=== PATIENT | female | born 1990 | race Caucasian/White ===

== ENCOUNTER 2019-04-12 16:15 | Inpatient (IN) | payer OTHER, SELFPAY ==
[2019-04-12 16:48] VITALS: BMI 32.4
[2019-04-12] MEDS: miSOPROStol 25 MCG TABLET PO ×2 (17:20→21:36)
[2019-04-12 17:35] LABS: Absolute Lymphocyte Count 1.81 X10^3/uL (0.83-4.51); Absolute Neutrophil Count 6.3 X10^3/uL (2.0-7.7); Basophil# 0.04 X10^3/uL; Basophil% 0.4 % (0-1); Eosinophil# 0.09 X10^3/uL; Hematocrit 33.6 % (37-47); Hemoglobin 10.9 g/dL (12.0-15.0); Lymphocyte # 1.81 X10^3/ul (4.0); Lymphocyte % 20.1 % (19-41); Mean Corp Hgb Conc 32.4 g/dL (32-36); Mean Corpuscular Volume 80.2 fL (81-99); Mean Platelet Vol. 11.1 fl (6.2-12.0); Monocyte# 0.74 X10^3/uL; Monocyte% 8.2 % (0-10); NRBC Flagged by Analyzer 0 % (0-5); Neutrophil # 6.28 X10^3/uL (2.7-7.7); Neutrophil % 69.9 % (47-70); Platelet Count 233 K/mm3 (150-450); RBC Distribution Width CV 13.6 % (11.6-14.6); RBC Distribution Width SD 39.3 fl (35.1-43.9); Red Blood Count 4.19 M/mm3 (4.2-5.4)
[2019-04-12 17:36] LABS: International Normalized Ratio 0.9; Prothrombin Time (Protime)PT. 12.1 SECONDS (11.7-14.9)
[2019-04-12 17:37] LABS: Partial Thromboplast Time 25.5 Seconds (24.1-36.2)
[2019-04-12 17:43] LABS: AST(SGOT) 23 U/L (15-37); Alanine Aminotransfer ALT/SGPT 28 U/L (13-56); Creatinine, Serum 1.03 mg/dL (0.55-1.02); EST Glomerular Filtration Rate 69 mL/min (>60); Est Glom Filt Rate - Afr Amer 83 mL/min (>60); Estimated Creatinine Clearance 74.48 ml/min; Uric Acid 4.4 mg/dL (2.6-6.0)
--- NOTE | 2019-04-12 19:38 | PCM.HP.OB ---
History Date of Admission: 04/12/19 Final KIRT: 04/16/19 Final KIRT Source: US <20 weeks Gestational age: 39 Weeks and 3 Days History of this : This is a 28 year-old, @ 39 3/7 weeks presents c/o increased blood pressure. Patient was seen in the office in yesterday and her blood pressure was mildly elevated. She was sent for preeclampsia labs. She was seen back today. She had a mild headache yesterday but denies headache today. She is been kind of tired. She denies visual changes or epigastric pain. She is had good movement. No vaginal bleeding or leaking of fluid. No regular contractions. Since he has been uncomplicated to date. Cording to her past medical history and her office chart, she has a history of genital HSV. Allergies No Known Allergies Allergy (Verified 04/12/19 17:32) Home Medications: Home Medications Acyclovir 04/12/19 Pnv No.95/Ferrous Fum/Folic AC [ Caplet] 1 ea PO 04/12/19 Smoking Status: Never smoker Alcohol: None Number of Fetus(es): 1 NST - FHR Rate Baby A Baseline: Normal Variability:: Moderate Accelerations:: 15 x 15 Decelerations:: None NST Reactive:: Yes, Appropriate for gestational age FHR Category:: Category I Uterine Activity:: Irregular contractions History Past Pregnancies: Past Pregnancies Delivery Date Name GA/ Weeks Outcome Route Wt Sex Labor Length Anesthesia Delivery Location Provider FOB Expected Delivery Method: Spontaneous Vaginal Review of Systems Constitutional: Denies: Chills, Fever Eyes: Denies: Blurred vision Cardiovascular: Denies: Chest Pain Respiratory: Denies: Cough, Shortness of Breath Skin: Denies: Rash Neurological: Denies: Balance problems Hematologic/ Lymphatic: Reports: Anemia Physical Exam General: Alert, Cooperative, No apparent distress Cardiovascular: Regular rate Lungs: Normal air movement Abdomen: Soft, Non Tender, Non-Distended, Gravid, Appropriate for Gestational Age Extremities:: Other - 2+ edema Neurological: Cranial nerves II-XII grossly intact, Deep Tendon Reflexes 2+/4 and Symmetrical. Negative for: Clonus DIVISION SUPERINTENDENT: Normal external genitalia Estimated gestational size: Appropriate for gestational size Presentation: Cephalic Cervix Dilation (cm): 0 - TM consistency, midposition Station: -2 Effacement (%): 60 Assessment/Plan This is a 28 year-old, 1 para 0 at 39-3/7 weeks gestation with gestational hypertension. No evidence of preeclampsia. Labs are normal. heart tones are category 1. Risk benefits and alternatives to induction's were discussed with the patient, her questions were answered to her satisfaction and consent was signed. She will undergo Cytotec, Kramer and likely artificial rupture membranes for induction. She may have epidural, nitrous oxide or Nubain as needed for pain control. Will monitor blood pressures. Procedure note: 28 [place] Kramer catheter was placed over the stylette into the internal cervical loss without difficulty. Balloon was inflated to 30 cc and placement over the internal loss was confirmed. Patient and fetus tolerated the procedure well. We will proceed with a second dose of Cytotec for induction tonight. Then will likely international exchange coordinator to Pitocin. For patient have a light diet now, then clears after this.
[2019-04-12 19:57] LABS: Protein, Urine (Random) 40.4 mg/dL (<11.9); Protein:Creat Ratio 293 mg/g CRE (0-200)
[2019-04-13] MEDS: Oxytocin 30 units/NS 500 ml 30 UNITS/500 ML IV.SOLN IV (01:48)
[2019-04-13] MEDS: 0.9% Saline Lock 10 ML Syringe IV (01:48)
[2019-04-13] MEDS: Lactated Ringers 1,000 ML 50 ML IV (01:48)
[2019-04-13] MEDS: Acetaminophen 325 MG Tablet PO (04:05)
[2019-04-13] MEDS: Lactated Ringers 500 ML 999 ML IV (07:01)
[2019-04-13] MEDS: fentaNYL-bupivacaine (epidural) 100 ML BAG EPIDURAL ×2 (08:00→12:56)
--- NOTE | 2019-04-13 08:39 | PCM.PN.BLA ---
Progress Note Seen at bedside resting comfortably with epidural in place. Vaginal exam performed she was 4-5 cm / 90%/-3 station with bulging membranes. Pressure was placed on the butt and during a contraction membranes were ruptured- copious amount of clear fluid. Pitocin at 6mu. Continue to labor, anticipate .
[2019-04-13] MEDS: Ondansetron 4 MG/2 ML Vial IV (11:36)
[2019-04-13] MEDS: Lactated Ringers 1,000 ML 200 ML IV (12:00)
[2019-04-13] MEDS: Oxytocin 30 units/NS 500 ml 30 UNITS/500 ML IV.SOLN 334 UNITS IV (18:12)
--- NOTE | 2019-04-13 18:29 | PCM.OPRPT ---
Vaginal Delivery Maternal Presentation: Medically Indicated Induction Method of Induction: Pitocin, Kramer Bulb, Cytotec Medical Reason for Induction: Gestational Hypertension Amniotic Membrane Rupture Type: Artificial Amniotic Fluid Description: Clear Final KIRT: 04/16/19 Gestational age: 39 Weeks and 4 Days Date of Procedure: 04/13/19 Pre-Operative Diagnosis: Gestational HTN, Term gestation Post-Operative Diagnosis: same Surgery/ Procedure Performed: Spontaneous Vaginal Delivery Type of Anesthesia: Epidural Description of Procedure: of live male infant, NUCHAL X 1- loose. head on perineum - tight vaginal band- patient was given option for small episiotomy to expedite delivery- and accepted. RML made- head delivered without difficulty followed by gentle downward traction- delivery of anterior shoulder and rest of infant body without difficulty. placed on mother- delayed cord clamping performed. Presentation: Vertex Placental Delivery Description: Spontaneous Placenta Disposition: [facility] Cord Vessel Description: 3 Vessels Cord Entanglement: None, Around neck x 1, loose Drain: Kramer to straight drain Estimated Blood Loss: 350 A gender: Male (1 minute): 8 (5 minute): 9 Episiotomy Description: Right Mediolateral - repaired with 2-0 vicryl and 3-0 rapide, 2nd degree Laceration: Vaginal Extension/lac - repaired with 2-0 vicryl, 2nd degree Medications given after delivery: IV Pitocin Complications: None
[2019-04-13] MEDS: Ibuprofen 600 MG Tablet PO (20:33)
--- NOTE | 2019-04-13 22:24 | NURSING ---
At 2210 patient up to bathroom with assist from this RN and Brendon RN, performed arabella care and voided but missed hat. Pt tolerated activity well.
[2019-04-14 00:29] VITALS: BP 125/63; PULSE 109; RESP 18; TEMP 36.4
[2019-04-14] MEDS: Dibucaine 30 GM Tube 1 APPLIC TOPICAL (00:37)
[2019-04-14 04:58] VITALS: BP 109/58; PULSE 96; RESP 18; TEMP 36.4
--- NOTE | 2019-04-14 07:49 | PCM.PN.OB ---
Subjective: Patient seen at bedside, doing well. Patient reports some perineal discomfort. Voiding without difficulty. Mild lochia. Breast-feeding - Physical Exam Vitals/I&O's: Vital Signs Temp Pulse Resp BP 97.5 F L 96 18 109/58 L 04/14/19 04:58 04/14/19 04:58 04/14/19 04:58 04/14/19 04:58 Oxygen Delivery Method Room Air Weight: 88.451 kg Body Mass Index (BMI) 32.4 Intake and Output for Last 24 Hours 04/12/19 04/13/19 04/14/19 23:59 23:59 23:59 Intake Total 3136.59 / 3136.59 Output Total 300 / 300 Balance 2836.59 / 2836.59 General: Alert, Oriented x3 Abdomen: Soft, Non Tender, - - fundus firm Extremities: No Calf Tenderness Current Medications Acetaminophen (Tylenol) 1,000 mg PO Q8H PRN PRN PRN Reason: Pain Score 1-3/10 Bisacodyl (Dulcolax) 10 mg RECTAL UD PRN PRN Reason: If no BM Dibucaine (Dibucaine) 1 applic TOPICAL TID PRN PRN; Protocol PRN Reason: Discomfort Last Admin: 04/14/19 00:37 Dose: 1 tube Documented by: Hydrocortisone (Hytone) 1 applic TOPICAL TID PRN PRN; Protocol PRN Reason: Discomfort Ibuprofen (Motrin) 600 mg PO Q6H PRN PRN PRN Reason: Pain Score 1-3/10 Last Admin: 04/13/19 20:33 Dose: 600 mg Documented by: Methylergonovine Maleate (Methergine) 0.2 mg IM X1 PRN PRN Reason: Excess bleeding/uterine atony Oxycodone HCl (Oxyir) 5 - 10 mg PO Q4H PRN PRN PRN Reason: Pain Score 4-10/10 Senna/Docusate Sodium (Senokot-S, Zarina-Colace) 1 - 2 tablet PO DAILY PRN PRN PRN Reason: Constipation Simethicone (Mylicon) 80 mg PO PCHS PRN PRN Reason: Indigestion/Stomach pain Sodium Chloride () 5 - 15 ml IV UD PRN PRN Reason: SALINE FLUSH Medical Necessity - Tobacco Use Smoking Status: Never smoker Assessment/Plan PPD#1, doing well routine care pain mgmt
[2019-04-14 08:28] VITALS: BP 119/67; PULSE 96; RESP 16; TEMP 36.8
[2019-04-14] MEDS: Ibuprofen 600 MG Tablet PO ×2 (09:13→19:02)
[2019-04-14 12:00] VITALS: BP 110/60; PULSE 86; RESP 16; TEMP 36.8
[2019-04-14 16:00] VITALS: BP 111/68; PULSE 100; RESP 16; TEMP 36.9
[2019-04-14 20:02] VITALS: BP 120/84; PULSE 97; RESP 18; TEMP 37.1; O2SAT 97
[2019-04-15 03:45] VITALS: BP 131/65; PULSE 89; RESP 14; TEMP 37.2
[2019-04-15] MEDS: Ibuprofen 600 MG Tablet PO (05:15)
--- NOTE | 2019-04-15 09:29 | PCM.PN.OB ---
Subjective: Doing well per patient and nursing staff. Ambulating and taking PO without difficulty. Voiding and passing flatus. without difficulty. Planning D/C home today. - Physical Exam Vitals/I&O's: Vital Signs Temp Pulse Resp BP Pulse Ox 98.9 F 89 14 131/65 H 97 04/15/19 03:45 04/15/19 03:45 04/15/19 03:45 04/15/19 03:45 04/14/19 20:02 Oxygen Delivery Method Room Air Weight: 195 lb Body Mass Index (BMI) 32.4 Intake and Output for Last 24 Hours 04/13/19 04/14/19 04/15/19 23:59 23:59 23:59 Intake Total 3136.59 / 3136.59 Output Total 300 / 300 Balance 2836.59 / 2836.59 General: Alert, Oriented x3, Cooperative HEENT: Atraumatic, Normocephalic Neck: Trachea Midline Lungs: Clear to auscultation, Normal air movement, No rhonchi, No wheeze Cardiovascular: Regular rate, Regular Rhythm, No murmurs Abdomen: Bowel Sounds Present, Soft, - - fundus firm 2 below Extremities: No edema Neurological: Deep Tendon Reflexes 2+/4 and Symmetrical Psych/Mental Status: Normal Affect, Appropriate Current Medications Acetaminophen (Tylenol) 1,000 mg PO Q8H PRN PRN PRN Reason: Pain Score 1-3/10 Bisacodyl (Dulcolax) 10 mg RECTAL UD PRN PRN Reason: If no BM Dibucaine (Dibucaine) 1 applic TOPICAL TID PRN PRN; Protocol PRN Reason: Discomfort Last Admin: 04/14/19 00:37 Dose: 1 tube Documented by: Hydrocortisone (Hytone) 1 applic TOPICAL TID PRN PRN; Protocol PRN Reason: Discomfort Ibuprofen (Motrin) 600 mg PO Q6H PRN PRN PRN Reason: Pain Score 1-3/10 Last Admin: 04/15/19 05:15 Dose: 600 mg Documented by: Methylergonovine Maleate (Methergine) 0.2 mg IM X1 PRN PRN Reason: Excess bleeding/uterine atony Oxycodone HCl (Oxyir) 5 - 10 mg PO Q4H PRN PRN PRN Reason: Pain Score 4-10/10 Senna/Docusate Sodium (Senokot-S, Zarina-Colace) 1 - 2 tablet PO DAILY PRN PRN PRN Reason: Constipation Simethicone (Mylicon) 80 mg PO PCHS PRN PRN Reason: Indigestion/Stomach pain Sodium Chloride () 5 - 15 ml IV UD PRN PRN Reason: SALINE FLUSH Medical Necessity - Tobacco Use Smoking Status: Never smoker Assessment/Plan A:PPD #2 P: 1) Routine care 2) Discharge and instructions reviewed 3) Follow up for BP check next week. 2 week and 6 week visit.
--- NOTE | 2019-04-15 09:31 | DCINST_ITS ---
Discharge Diet: No Restrictions Discharge Activity: Return to Normal Activity, May not drive while taking narcotic pain medications., May Shower May resume sexual activity in: 4-6 weeks Weight Bearing Status: Full weight bearing Additional Activity Instructions:: Nothing in the vagina for 4-6 weeks. You may return to work/school in 6 weeks. Call your doctor if your incision/area has: Continuous Slow Oozing, Sudden Increased Bleeding, Increased Pain/ Swelling, Increased Redness, Foul Smelling Discharge Call your doctor if you observe: Fever of 101 or Higher, Numbness or Tingling, Inability to urinate, Inability to have a bowel movement, Using more than one pad per hour, Shortness of breath, Chest pain, Increased palpitations (irregular heartbeat), Calf discomfort, Uncontrolled pain Additional Instructions: If you experience any of the following, contact your healthcare provider. * Bleeding that soaks a pad every hour for 2 hours * Fever 100.4 or higher * Unrelieved incision or abdominal pain * Swelling, redness, discharge or bleeding from your incision or episiotomy site * Your incision begins to separate * Problems urinating (including inability to urinate or burning while urinating). * Visual changes * Severe headache * Flu-like symptoms * Pain or redness in one of both of your breasts * Pain, warmth, tenderness or swelling in your legs, especially the calf area * Frequent nausea and vomiting * Symptoms of depression or anxiety If you experience any of the following, call 911 or go to the nearest Emergency Room. * Chest pain * Problems breathing * Seizure activity * Partial or complete paralysis of a body part, slurred speech, weakness or drooping of the face, or a sudden inability to walk or hold your balance Allergies/Adverse Reactions: Allergies No Known Allergies Allergy (Verified 04/12/19 17:32) Medications to take at Discharge Acyclovir 04/12/19 Pnv No.95/Ferrous Fum/Folic AC [ Caplet] 1 ea PO 04/12/19 Ibuprofen [Motrin] 600 mg PO Q6H PRN PRN #30 tab 04/15/19 The following prescriptions were given: Ibuprofen [Motrin] 600 mg PO Q6H PRN PRN #30 tab PRN Reason: Pain Score 1-3/10 Transmission Status: Pending to [facility] Please Follow Up With: Teresita Perdomo CNM When: Call to make an appointment with your doctor on 04/18/19 for BP check, 2 week and 6 weeks. If you had elevated Blood Pressure or 4th degree laceration you will need to be seen in 2 weeks. Primary Care Physician: Savage Li MD [Primary Care Provider] - Test Results: Test results from this visit will be discussed in further detail at your follow- up appointment, if applicable.
[2019-04-15 10:00] VITALS: BP 137/78; PULSE 95; RESP 14; TEMP 36.3
== END 2019-04-15 11:50 | disposition home or self-care (01) | DRG 807 ==
PROVIDERS: Obstetrics & Gynecology; Admitting Provider Obstetrics & Gynecology; Family Provider Pediatrics; PCP Pediatrics; Visit Provider Obstetrics & Gynecology
DX: O13.4 Gestational [pregnancy-induced] hypertension without significant proteinuria, complicating childbirth (principal); Z37.0 Single live birth; O69.81X0 Labor and delivery complicated by cord around neck, without compression, not applicable or unspecified; O70.1 Second degree perineal laceration during delivery; O99.89 Other specified diseases and conditions complicating pregnancy, childbirth and the puerperium; N89.5 Stricture and atresia of vagina; Z3A.39 39 weeks gestation of pregnancy; Z87.42 Personal history of other diseases of the female genital tract
CPT/HCPCS: 59025; 59050; 82565; 82570; 84156; 84450; 84460; 84550; 85025; 85610; 85730; 86850; 86900; 86901; 99218; J7120; A4216; G0378; J2405; J3490

== ENCOUNTER 2021-09-09 07:00 | Inpatient (IN) | payer OTHER, SELFPAY ==
[2021-09-09] VITALS (65 sets, daily range): BP systolic 117–154; BP diastolic 57–91; PULSE 90–146; TEMP 36.4–37.1; O2SAT 94–100; BMI 33.5
[2021-09-09] MEDS: Lactated Ringers 1,000 ML 50 ML IV (07:55)
[2021-09-09 08:09] LABS: Absolute Lymphocyte Count 1.89 X10^3/uL (0.83-4.51); Absolute Neutrophil Count 5.9 X10^3/uL (2.0-7.7); Basophil# 0.05 X10^3/uL; Basophil% 0.6 % (0-1); Eosinophil# 0.16 X10^3/uL; Eosinophils% 1.8 % (0-5); Hematocrit 36.3 % (37-47); Hemoglobin 11.1 g/dL (12.0-15.0); Lymphocyte # 1.89 X10^3/ul (0.83-4.51); Lymphocyte % 21.5 % (19-41); Mean Corp Hgb Conc 30.6 g/dL (32-36); Mean Corpuscular Volume 75.3 fL (81-99); Mean Platelet Vol. 10.8 fl (6.2-12.0); Monocyte# 0.72 X10^3/uL; Monocyte% 8.2 % (0-10); NRBC Flagged by Analyzer 0 % (0-5); Neutrophil # 5.91 X10^3/uL (2.7-7.7); Neutrophil % 67.3 % (47-70); Platelet Count 207 K/mm3 (150-450); RBC Distribution Width CV 15.8 % (11.6-14.6); RBC Distribution Width SD 42.2 fl (35.1-43.9); Red Blood Count 4.82 M/mm3 (4.2-5.4); White Blood Count 8.8 K/mm3 (4.4-11.0)
--- NOTE | 2021-09-09 08:18 | PCM.HP.OB ---
HPI - General General Date of Admission: 09/09/21 HPI Narrative GENEVA GARCÍA, is a 30 F at 40.4 weeks gestation who presents for elective induction of labor. has been uncomplicated. She has a history of HSV and has been taking Acyclovir PO starting at 36 weeks gestation. Maternal Data Information KIRT Calculator Estimated Delivery Date Method Current WG Current Estimate 09/05/21 Manual 40w 4d PFSH PFSH Medical History Genital herpes affecting Pre-eclampsia Home Medications acyclovir 400 mg PO BID 04/12/19 [History Last Taken 09/09/21 06:30 400 mg] Allergy/AdvReac Type Severity Reaction Status Date / Time No Known Allergies Allergy Verified 04/12/19 17:32 Social History Smoking Status: Never smoker History Elective abortions Hx Para 1 Spontaneous abortions Hx # Term Pregnancies Ectopic pregnancies Hx # Pregnancies Multiple births # of living children NST FHR Rate Baby A Baseline: 160 Variability:: Moderate Accelerations:: 15 x 15 Decelerations:: None NST Reactive:: Yes FHR Category:: Category I Uterine Activity:: occasional ROS Eyes Eyes: Denies blurry vision, change in vision or spots in vision ENT HEENT: Denies dizziness or headache(s) Cardiovascular Cardiovascular: Denies abdominal pain, chest pain or dyspnea Respiratory/Chest Respiratory/Chest: Denies cough, dyspnea, shortness of breath at rest or shortness of breath with exertion Gastrointestinal Gastrointestinal: Denies abdominal pain, diarrhea or vomiting Genitourinary Genitourinary: Denies change in urinary stream, difficulty urinating or dysuria Musculoskeletal Musculoskeletal: Reports none Integumentary Integumentary: Denies rash Neurologic Neurologic: Denies dizziness, headache(s), memory loss or weakness Psychiatric Psychiatric: Reports none Vital Signs Vital Signs Vital Signs: 09/09/21 08:07 09/09/21 08:08 Temperature 97.9 F Pulse Rate 113 H Blood Pressure 132/84 H BP Systolic 132 BP Diastolic 84 Weight Weight: 195 lb 8.8 oz Body Mass Index (BMI) 33.5 Physical Exam Const alert, oriented x3 and no apparent distress General Appearance: cooperative Orientation / Consciousness: awake Exam Limitations: no limitations HEENT normocephalic Head and Scalp: normal to inspection Eyes General Eye: normal appearance of both eyes Neck full ROM and no lymphadenopathy Lymph Lymphatic: no lymphadenopathy noted Chest inspection of chest normal Resp normal respiratory effort, normal air movement and clear to auscultation bilaterally Effort and Inspection: able to speak in complete sentences and symmetric chest movement Cardio regular rate and regular rhythm GI normal to inspection, nondistended, normoactive bowel sounds Manual OB Exam: dilated 2, effaced 60 and station -1 Back/Spine normal ROM Extremity full ROM and no calf tenderness Skin no rashes or lesions noted General Skin Exam: no breakdown Neuro oriented x3 and CN's II-XII intact bilaterally Psych mental status grossly normal and thought process normal Labs Labs Labs: Blood Type O POSITIVE Antibody Screen NEGATIVE Hct 36.3 % (37-47) L Hgb 11.1 g/dL (12.0-15.0) L Rhogam given: No Rubella - immune HB- neg HC- neg HIV- NR RPR- NR GBS negative Assessment & Plan (1) 40 weeks gestation of : (2) History of herpes genitalis: (3) Encounter for induction of labor: PLAN: Admit to labor and delivery Routine labs Start lV and run fluids per policy GBS negative No vaginal lesions noted with exam Kramer bulb placed without difficulty and balloon filled with 30 cc NS Start Pitocin at 2 mu/min and increase per policy Epidural when indicated Anticipate Dr. Todd notified and is collaborating physician
[2021-09-09] MEDS: 0.9% Normal Saline Single 100 ML IV.SOLN. INTRA-UTER (08:35)
[2021-09-09] MEDS: Oxytocin 30 units/NS 500 ml 30 UNITS/500 ML IV.SOLN IV (08:40)
--- NOTE | 2021-09-09 12:15 | PCM.PN.BLA ---
Progress Note Patient seen at bedside. Comfortable with epidural anesthesia. Physical Exam Const alert and no apparent distress General Appearance: cooperative and comfortable Exam Limitations: no limitations HEENT normocephalic Eyes General Eye: normal appearance of both eyes Neck full ROM General: normal visual inspection Chest Chest: symmetrical chest wall rise Resp normal respiratory effort and normal air movement Effort and Inspection: symmetric chest movement Auscultation: clear to auscultation bilaterally Cardio regular rate and regular rhythm GI normal to inspection, nondistended, normoactive bowel sounds Back/Spine normal ROM Extremity full ROM and no calf tenderness General Extremity: normal exam except as noted Skin no rashes or lesions noted Neuro CN's II-XII intact bilaterally Psych mental status grossly normal Assessment & Plan Assessment/Plan (1) 40 weeks gestation of : (2) Encounter for induction of labor: PLAN: Kramer bulb out spontaneously Ptiocin 10 mu/min CE- 4/80/-1 AROM for moderate amount of clear fluid IUPC placed without difficulty Anticipate Dr. Todd updated
[2021-09-09] MEDS: Lactated Ringers 500 ML 999 ML IV ×3 (12:18→19:57)
[2021-09-09] MEDS: Lactated Ringers 1,000 ML 200 ML IV (15:35)
[2021-09-09] MEDS: fentaNYL-bupivacaine (epidural) 100 ML BAG EPIDURAL ×2 (15:36→20:08)
[2021-09-09] MEDS: Oxytocin 30 units/NS 500 ml 30 UNITS/500 ML IV.SOLN 334 UNITS IV (20:56)
--- NOTE | 2021-09-09 21:16 | EX.PCM.OBRPT ---
Assessment & Plan (1) (spontaneous vaginal delivery): (2) Laceration, obstetrical, first degree: Maternal Data Information KIRT Calculator Estimated Delivery Date Method Current WG Current Estimate 09/05/21 Manual 40w 4d Vaginal Delivery Maternal Presentation Maternal Presentation: Elective Induction Maternal Presentation: Patient is a at 40.4 weeks gestation that presents for an elective induction of labor. Type of Induction: Pitocin, Kramer Bulb and Amniotomy Operative Information Date of Procedure: 09/09/21 Pre-Operative Diagnosis: Term gestation, Induction of labor Post-Operative Diagnosis: , live viable male Surgery / Procedure Performed: Spontaneous Vaginal Delivery Type of Anesthesia: Epidural Drain: Kramer to straight drain Estimated Blood Loss: 250 Time of Delivery: 20:52 Findings Description of Procedure: Cat. 2 strip with variables and early decelerations. CE completed and patient was 10/100/+1. With minimal maternal effort, delivery of head followed immediately by anterior shoulder, posterior shoulder and remainder of infant. Loose cord around entire body. Vigorous male placed on maternal abdomen and attended to by nursing staff. Pitocin IV started for active management of the third stage of labor. 3 vessel cord clamped and cut by myself after 2 minute delay. placed immediately skin to skin with patient. Placenta delivered spontaneously and intact. First degree vaginal laceration repaired in usual fashion with 3-0 Vicryl Rapide. Hemostasis obtained. Vaginal sweep completed by myself. Fundus firm 2 below U. EBL 250 cc. Apgars 8/9. Patient and infant bonding well at this time. Dr. Todd notified of delivery. Presentation: QASIM Amniotic Membrane Rupture Type: Artificial Time of Membrane Rupture: 1211 Amniotic Fluid Description: Clear Placental Delivery Description: Spontaneous Placenta Disposition: [facility] Cord Vessel Description: 3 Vessels Cord Entanglement: - (Loose cord around body x1) Nuchal Cord Compression: Without compression A Gender: Male (1 minute): 8 (5 minute): 9 Delayed Cord Clamping: Yes Post Vaginal Delivery Medications Given After Delivery: IV Pitocin Episiotomy Description: None Laceration: 1st degree Complication Complications: None
[2021-09-10] VITALS (7 sets, daily range): BP systolic 118–129; BP diastolic 66–85; PULSE 98–115; RESP 16–18; TEMP 26.3–36.9; O2SAT 94–98
--- NOTE | 2021-09-10 02:19 | NURSING ---
09/09 2300: Epidural cath removed, blue tip intact.
[2021-09-10] MEDS: Acetaminophen 500 MG Tablet 1000 MG PO ×2 (05:51→15:34)
--- NOTE | 2021-09-10 13:36 | PCM.PN.OB ---
Subjective Subjective Denies complaints Objective Data Objective Data Vital Signs: Vital Signs Temp Pulse Resp BP Pulse Ox 97.8 F 105 H 16 118/66 98 09/10/21 13:11 09/10/21 13:11 09/10/21 13:11 09/10/21 13:11 09/10/21 03:25 Oxygen Delivery Method Room Air Weight: 195 lb 8.8 oz Body Mass Index (BMI) 33.5 Intake & Output: Intake and Output for Last 24 Hours 09/08/21 09/09/21 09/10/21 23:59 23:59 23:59 Intake Total 3644.49 / 3644.49 Output Total 1600 / 1600 750 / 750 Balance 2044.49 / 2044.49 -750 / -750 Lab / Micro Data Result Diagrams: 09/09/21 07:55 Micro: Microbiology 09/09/21 08:47 Nasal Secretion SARS-CoV-2 Antigen (Rapid) - Final Physical Exam Const alert, oriented x3 and no apparent distress HEENT normocephalic GI soft to palpation, non-tender and non-distended GI Narrative: fundus firm, mid & below umbilicus Extremity normal to inspection and no calf tenderness Assessment & Plan (1) (spontaneous vaginal delivery): COMMENT: PPD#1 PLAN: Routine care
[2021-09-10] MEDS: Naproxen 500 MG Tablet PO (20:37)
[2021-09-11 02:00] VITALS: BP 113/65; PULSE 83; RESP 14; TEMP 36.6
[2021-09-11] MEDS: Acetaminophen 500 MG Tablet 1000 MG PO ×2 (04:13→10:30)
[2021-09-11 08:56] VITALS: BP 126/87; PULSE 79; RESP 16; TEMP 36.7
--- NOTE | 2021-09-11 08:57 | PCM.DC.SUM ---
Providers Date of Admission: 09/09/21 Primary Care Physician: Dr. Savage Li MD Reason For Visit: INDUCTION Diagnosis Discharge Diagnosis (1) (spontaneous vaginal delivery): Status: Acute Code(s): O80 - Encounter for full-term uncomplicated delivery Medications at Discharge Home Medications acetaminophen 1,000 mg PO Q6H PRN PRN #0 tab 09/11/21 naproxen 500 mg PO Q8H PRN PRN #0 tab 09/11/21 Weight / BMI Weight Weight: 195 lb 8.8 oz Body Mass Index (BMI) 33.5 ABG / Lab / Microbiology Data Result Diagrams: 09/09/21 07:55 Microbiology: Microbiology 09/09/21 08:47 Nasal Secretion SARS-CoV-2 Antigen (Rapid) - Final Meaningful Use Info Meaningful Use Diagnoses (Choose all that apply): None applicable Discharge Plan Admission Admit Date/Time: 09/09/21 07:00 Primary Reason for Your Visit: vaginal delivery Attending Provider: Prudence Vera Primary Care Provider: Savage Li Instructions Additional Instructions / Restrictions: follow up in 2 weeks and 6 weeks Discharge Orders/Prescriptions Prescriptions: New acetaminophen 500 mg Tablet 1,000 mg PO Q6H PRN PRN (Reason: Pain 1-10 Or Fever) Qty: 0 RF: 0 naproxen 500 mg Tablet 500 mg PO Q8H PRN PRN (Reason: Pain Score 1-3) Qty: 0 RF: 0 Discontinued acyclovir 400 MG tablet 400 mg PO BID RF: 0 Referrals / Follow Up: Savage Li MD [Primary Care Provider] - Disposition Disposition (needs filled in before D/C Order can be placed): Home, Self Care
== END 2021-09-11 12:45 | disposition home or self-care (01) | DRG 807 ==
PROVIDERS: Admitting Provider Advanced Practice Midwife; PCP Pediatrics; Referring Provider Advanced Practice Midwife; Visit Provider Advanced Practice Midwife
DX: O76 Abnormality in fetal heart rate and rhythm complicating labor and delivery (principal); Z37.0 Single live birth; O69.2XX0 Labor and delivery complicated by other cord entanglement, with compression, not applicable or unspecified; O70.0 First degree perineal laceration during delivery; Z3A.40 40 weeks gestation of pregnancy; Z87.42 Personal history of other diseases of the female genital tract; Z87.59 Personal history of other complications of pregnancy, childbirth and the puerperium
CPT/HCPCS: 59025; 59050; 85025; 86850; 86900; 86901; 87426; 99218; J7120; G0378

== ENCOUNTER 2024-02-16 02:33 | Inpatient (IN) | payer OTHER, SELFPAY ==
[2024-02-15] VITALS (11 sets, daily range): BP systolic 142; BP diastolic 96; PULSE 91–104; RESP 18; TEMP 36.9; O2SAT 94–98; BMI 32.2
[2024-02-16] VITALS (71 sets, daily range): BP systolic 102–181; BP diastolic 55–112; PULSE 88–192; RESP 16–20; TEMP 36.3–36.8; O2SAT 93–100
[2024-02-16 01:35] LABS: Hemoglobin 12.2 g/dL (12.0-15.0); Mean Corp Hgb Conc 32.1 g/dL (32-36); Mean Corpuscular Hgb 26.3 pg (27.0-32.0); Mean Corpuscular Volume 81.9 fL (81-99); Mean Platelet Vol. 10.5 fl (6.2-12.0); Platelet Count 224 K/mm3 (150-450); RBC Distribution Width SD 50.4 fl (35.1-43.9); Red Blood Count 4.64 M/mm3 (4.2-5.4); White Blood Count 15.6 K/mm3 (4.4-11.0)
[2024-02-16 02:20] LABS: AST(SGOT) 17 U/L (15-37); Alanine Aminotransfer ALT/SGPT 20 U/L (13-56); Creatinine, Serum 0.83 mg/dL (0.55-1.02); EST Glomerular Filtration Rate 86 mL/min (>60); Est Glom Filt Rate - Afr Amer 104 mL/min (>60); Estimated Creatinine Clearance 103.66 ml/min; Uric Acid 3.8 mg/dL (2.6-6.0)
[2024-02-16 02:25] LABS: Protein, Urine (Random) 32.5 mg/dL (<11.9); Protein:Creat Ratio 162 mg/g CRE (0-200)
[2024-02-16] MEDS: Lactated Ringers 1,000 ML 999 ML IV (02:40)
[2024-02-16 03:13] LABS: Syphilis Antibodies Non-reactive
[2024-02-16] MEDS: fentaNYL-bupivacaine (epidural) 100 ML BAG EPIDURAL ×2 (03:44→07:49)
[2024-02-16] MEDS: Lactated Ringers 1,000 ML 50 ML IV (04:00)
[2024-02-16] MEDS: Ondansetron 4 MG/2 ML Vial IV (04:27)
[2024-02-16] MEDS: Oxytocin 15 Units/NS 250ml 15 UNITS/250 ML IV.SOLN 2 UNITS IV (06:47)
--- NOTE | 2024-02-16 08:55 | HP.PCM.OB_ITS ---
HPI - General General Date of Admission: 02/16/24 Date of Service: 02/16/24 Chief Complaint: labor HPI Narrative GENEVA GARCÍA, is a 33 F who presented on 02/15/2024 c./o ctxs. Patient has a history of gestational hypertension with no other previous pregnancies, history of anxiety. History of herpes, and anemia. Maternal Data Information Final KIRT: 02/13/24 Gestational age: 40 3/7 PFSH [facility] Medical History (Updated 02/16/24 @ 08:[address] Shari Hinton MD) Anxiety Genital herpes affecting Pre-eclampsia Home Medications ?Medication ?Instructions ?Recorded ?Last Taken ?Type acetaminophen 500 mg tablet 1,000 mg (2 x 500 mg) PO Q6H PRN 09/11/21 Unknown Rx PRN Pain 1-10 Or Fever #0 tabs naproxen 500 mg tablet 500 mg PO Q8H PRN PRN Pain Score 09/11/21 Unknown Rx 1-3 #0 tabs acyclovir 400 mg tablet mg 02/15/24 02/15/24 09:00 History aspirin 81 mg tablet,delayed 81 mg PO DAILY 02/15/24 Unknown History release (Adult Low Dose Aspirin) ferrous sulfate 325 mg (65 mg 325 mg PO DAILY 02/15/24 Unknown History iron) tablet (iron) vit no.95-ferrous 1 tab PO DAILY 02/15/24 02/15/24 09:00 History fumarate 28 mg-folic acid 800 mcg tablet () Allergy/AdvReac Type Severity Reaction Status Date / Time No Known Allergies Allergy Verified 02/15/24 22:20 Social History Smoking Status: Never smoker History Elective abortions Hx Para 2 Spontaneous abortions Hx # Term Pregnancies Ectopic pregnancies Hx # Pregnancies Multiple births # of living children ROS Constitutional Constitutional: Denies fatigue, fever(s) or malaise Eyes Eyes: Denies change in vision ENT HEENT: Denies dizziness or headache(s) Cardiovascular Cardiovascular: Denies chest pain, dyspnea or lightheadedness Respiratory/Chest Respiratory/Chest: Denies cough or dyspnea Gastrointestinal Gastrointestinal: Denies change in bowel habits Genitourinary Genitourinary: Denies burning urination or genital lesions Integumentary Integumentary: Denies rash Neurologic Neurologic: Denies confusion, dizziness, headache(s), numbness or weakness Vital Signs Vital Signs Vital Signs: 02/15/24 22:08 02/15/24 22:08 02/15/24 22:11 Temperature Temperature Source Temporal Pulse Rate 97 Respiratory Rate Blood Pressure BP Systolic BP Diastolic Pulse Ox 95 02/15/24 22:11 02/15/24 22:11 02/15/24 22:11 Temperature 98.5 F Temperature Source Pulse Rate Respiratory Rate 18 Blood Pressure BP Systolic BP Diastolic Pulse Ox 96 02/15/24 22:12 02/15/24 22:12 02/15/24 23:24 Temperature Temperature Source Pulse Rate 94 104 H Respiratory Rate Blood Pressure 142/96 H BP Systolic 142 BP Diastolic 96 Pulse Ox 02/15/24 23:24 02/15/24 23:30 02/15/24 23:30 Temperature Temperature Source Pulse Rate 95 Respiratory Rate Blood Pressure BP Systolic BP Diastolic Pulse Ox 97 97 02/15/24 23:35 02/15/24 23:35 02/15/24 23:39 Temperature Temperature Source Pulse Rate 96 93 Respiratory Rate Blood Pressure BP Systolic BP Diastolic Pulse Ox 98 02/15/24 23:39 02/15/24 23:44 02/15/24 23:44 Temperature Temperature Source Pulse Rate 93 Respiratory Rate Blood Pressure BP Systolic BP Diastolic Pulse Ox 97 98 02/15/24 23:48 02/15/24 23:48 02/15/24 23:49 Temperature Temperature Source Pulse Rate 91 93 Respiratory Rate Blood Pressure BP Systolic BP Diastolic Pulse Ox 94 02/15/24 23:49 02/15/24 23:55 02/15/24 23:55 Temperature Temperature Source Pulse Rate 94 Respiratory Rate Blood Pressure BP Systolic BP Diastolic Pulse Ox 98 98 02/16/24 00:00 02/16/24 00:00 02/16/24 00:00 Temperature Temperature Source Temporal Pulse Rate 90 Respiratory Rate Blood Pressure 138/93 H BP Systolic 138 BP Diastolic 93 Pulse Ox 02/16/24 00:00 02/16/24 00:00 02/16/24 01:39 Temperature 98.3 F Temperature Source Temporal Pulse Rate Respiratory Rate 18 Blood Pressure BP Systolic BP Diastolic Pulse Ox 02/16/24 01:39 02/16/24 01:39 02/16/24 01:40 Temperature 98.2 F Temperature Source Pulse Rate Respiratory Rate 18 Blood Pressure 144/90 H BP Systolic 144 BP Diastolic 90 Pulse Ox 02/16/24 01:40 02/16/24 01:59 02/16/24 01:59 Temperature Temperature Source Pulse Rate 98 114 H Respiratory Rate Blood Pressure BP Systolic BP Diastolic Pulse Ox 98 02/16/24 02:04 02/16/24 02:04 02/16/24 03:16 Temperature Temperature Source Temporal Pulse Rate 103 H Respiratory Rate Blood Pressure BP Systolic BP Diastolic Pulse Ox 98 02/16/24 03:16 02/16/24 03:16 02/16/24 03:16 Temperature Temperature Source Pulse Rate 167 H Respiratory Rate 18 Blood Pressure BP Systolic BP Diastolic Pulse Ox 96 02/16/24 03:16 02/16/24 03:17 02/16/24 03:17 Temperature 97.9 F Temperature Source Pulse Rate 101 H Respiratory Rate Blood Pressure 156/84 H BP Systolic 156 BP Diastolic 84 Pulse Ox 02/16/24 03:21 02/16/24 03:21 02/16/24 03:26 Temperature Temperature Source Pulse Rate 98 192 H Respiratory Rate Blood Pressure BP Systolic BP Diastolic Pulse Ox 100 02/16/24 03:26 02/16/24 03:31 02/16/24 03:31 Temperature Temperature Source Pulse Rate 98 Respiratory Rate Blood Pressure BP Systolic BP Diastolic Pulse Ox 97 99 02/16/24 03:34 02/16/24 03:34 02/16/24 03:36 Temperature Temperature Source Pulse Rate 102 H 102 H Respiratory Rate Blood Pressure 181/107 H BP Systolic 181 BP Diastolic 107 Pulse Ox 02/16/24 03:36 02/16/24 03:38 02/16/24 03:38 Temperature Temperature Source Pulse Rate 98 Respiratory Rate Blood Pressure 167/88 H BP Systolic 167 BP Diastolic 88 Pulse Ox 98 02/16/24 03:40 02/16/24 03:41 02/16/24 03:41 Temperature Temperature Source Pulse Rate 102 H Respiratory Rate 20 H Blood Pressure BP Systolic BP Diastolic Pulse Ox 98 02/16/24 03:44 02/16/24 03:44 02/16/24 03:45 Temperature Temperature Source Pulse Rate 112 H Respiratory Rate 18 Blood Pressure 163/112 H BP Systolic 163 BP Diastolic 112 Pulse Ox 02/16/24 03:48 02/16/24 03:48 02/16/24 03:50 Temperature Temperature Source Pulse Rate 120 H Respiratory Rate 18 Blood Pressure BP Systolic BP Diastolic Pulse Ox 98 02/16/24 03:51 02/16/24 03:51 02/16/24 03:53 Temperature Temperature Source Pulse Rate 115 H 113 H Respiratory Rate Blood Pressure 135/58 H BP Systolic 135 BP Diastolic 58 Pulse Ox 02/16/24 03:53 02/16/24 03:55 02/16/24 03:58 Temperature Temperature Source Pulse Rate 112 H Respiratory Rate 18 Blood Pressure BP Systolic BP Diastolic Pulse Ox 98 02/16/24 03:58 02/16/24 04:00 02/16/24 04:03 Temperature Temperature Source Pulse Rate 104 H Respiratory Rate 16 Blood Pressure BP Systolic BP Diastolic Pulse Ox 98 02/16/24 04:03 02/16/24 04:05 02/16/24 04:06 Temperature Temperature Source Pulse Rate 113 H Respiratory Rate 16 Blood Pressure BP Systolic BP Diastolic Pulse Ox 95 02/16/24 04:06 02/16/24 04:07 02/16/24 04:07 Temperature Temperature Source Pulse Rate 113 H Respiratory Rate Blood Pressure 133/55 H BP Systolic 133 BP Diastolic 55 Pulse Ox 93 02/16/24 04:08 02/16/24 04:08 02/16/24 04:08 Temperature Temperature Source Pulse Rate 103 H Respiratory Rate Blood Pressure 134/61 H BP Systolic 134 BP Diastolic 61 Pulse Ox 98 02/16/24 04:10 02/16/24 04:13 02/16/24 04:13 Temperature Temperature Source Pulse Rate 109 H Respiratory Rate 16 Blood Pressure 124/59 H BP Systolic 124 BP Diastolic 59 Pulse Ox 02/16/24 04:28 02/16/24 04:28 02/16/24 04:29 Temperature 97.7 F L Temperature Source Pulse Rate Respiratory Rate 18 Blood Pressure 149/86 H BP Systolic 149 BP Diastolic 86 Pulse Ox 02/16/24 04:29 02/16/24 05:47 02/16/24 05:47 Temperature Temperature Source Temporal Pulse Rate 123 H Respiratory Rate 16 Blood Pressure BP Systolic BP Diastolic Pulse Ox 02/16/24 05:47 02/16/24 05:48 02/16/24 05:48 Temperature 97.8 F Temperature Source Pulse Rate 102 H Respiratory Rate Blood Pressure 149/94 H BP Systolic 149 BP Diastolic 94 Pulse Ox 02/16/24 07:25 02/16/24 07:25 02/16/24 07:25 Temperature Temperature Source Pulse Rate 98 Respiratory Rate Blood Pressure 113/62 BP Systolic 113 BP Diastolic 62 Pulse Ox 100 02/16/24 07:25 02/16/24 07:25 02/16/24 07:25 Temperature 97.3 F L Temperature Source Temporal Pulse Rate Respiratory Rate 16 Blood Pressure BP Systolic BP Diastolic Pulse Ox Weight Weight: 85.1 kg Body Mass Index (BMI) 32.2 Physical Exam Const alert and no apparent distress General Appearance: cooperative HEENT normocephalic Resp normal respiratory effort Cardio regular rate GI soft to palpation GI Narrative: gravid, nontender, appropriate for gestational age Extremity no calf tenderness General Extremity: edema Skin no wounds Rashes: No rashes noted Psych activity/motor behavior normal Labs Labs Labs: Blood Type O POSITIVE Antibody Screen NEGATIVE Hct 38.0 % (37-47) Hgb 12.2 g/dL (12.0-15.0) Syphilis Total Ab Non-reactive Rhogam given: No Assessment & Plan (1) Spontaneous onset of labor: PLAN: 3 para 2 at 40-3/7 weeks gestation in spontaneous labor. May have routine pain control measures as needed and as indicated. Patient is now 9 cm. Artificial rupture membranes with return of small amount of clear fluid. Estimated weight is less than 4500 g clinically and pelvis clinically adequate to expect vaginal delivery.
[2024-02-16] MEDS: Oxytocin 15 Units/NS 250ml 15 UNITS/250 ML IV.SOLN 334 UNITS IV (09:28)
--- NOTE | 2024-02-16 09:38 | EX.PCM.OBRPT ---
Assessment & Plan (1) 40 weeks gestation of : (2) Spontaneous onset of labor: Maternal Data Information Final KIRT: 02/13/24 Gestational age: 40 3/7 Vaginal Delivery Maternal Presentation Maternal Presentation: Active Labor Operative Information Date of Procedure: 02/16/24 Pre-Operative Diagnosis: labor Post-Operative Diagnosis: same Surgery / Procedure Performed: Spontaneous Vaginal Delivery Type of Anesthesia: Epidural Special Medications: none Drain: - (none) Estimated Blood Loss: 200 Time of Delivery: 09:26 Findings Description of Procedure: A vigorous male infant was delivered OA over an intact perineum. The remainder the was delivered with maternal pushing and gentle traction only in less than 15 seconds. The Pitocin infusion was initiated for active management of the third stage. The cord was clamped and cut after 1 minute. The infant was attended to by the waiting nursing staff. The placenta was delivered spontaneously and intact. The cervix and vagina were intact. Sponge and needle counts were correct. A vaginal sweep was completed by me. Presentation: LIV Amniotic Membrane Rupture Type: Artificial Amniotic Fluid Description: Clear Placental Delivery Description: Spontaneous Placenta Disposition: [facility] Cord Vessel Description: 3 Vessels Cord Entanglement: None A Gender: Male (Slim gan) (1 minute): 8 (5 minute): 9 Delayed Cord Clamping: Yes Post Vaginal Delivery Medications Given After Delivery: IV Pitocin Episiotomy Description: None Laceration: None Complication Complications: None
[2024-02-16] MEDS: Oxytocin 15 Units/NS 250ml 15 UNITS/250 ML IV.SOLN 83 UNITS IV (10:13)
[2024-02-16] MEDS: Acetaminophen 500 MG Tablet 1000 MG PO ×2 (11:18→20:10)
[2024-02-17] VITALS: BP 114/80; PULSE 91; RESP 16; TEMP 36.6; O2SAT 98
[2024-02-17 00:41] VITALS: BP 114/80; PULSE 87
[2024-02-17 04:00] VITALS: BP 107/57; PULSE 80; RESP 14; TEMP 36.6; O2SAT 98
[2024-02-17 04:07] VITALS: PULSE 86; O2SAT 98
[2024-02-17 04:08] VITALS: BP 107/57; PULSE 86
[2024-02-17 08:01] VITALS: BP 137/73; PULSE 82
[2024-02-17] MEDS: Acetaminophen 500 MG Tablet 1000 MG PO (09:15)
--- NOTE | 2024-02-17 09:43 | PCM.PN.OB ---
Subjective Subjective Doing well no complaints. Mild lochia. Voiding without difficulty. BP has been normal. Breast feeding Objective Data Objective Data Vital Signs: Vital Signs Temp Pulse Resp BP Pulse Ox O2 Del Method 98 F 82 14 137/73 H 98 Room Air 02/17/24 04:00 02/17/24 08:01 02/17/24 04:00 02/17/24 08:01 02/17/24 04:07 02/17/24 04:00 Oxygen Delivery Method Room Air Weight: 85.1 kg Body Mass Index (BMI) 32.2 Intake & Output: Intake and Output for Last 24 Hours 02/15/24 02/16/24 02/17/24 23:59 23:59 23:59 Intake Total 1782.50 / 1782.50 Output Total 950 / 950 Balance 832.50 / 832.50 Lab / Micro Data 02/16/24 01:25 02/16/24 01:25 Physical Exam Const alert and no apparent distress Narrative: Fundus firm, below umbilicus. Assessment & Plan (1) (spontaneous vaginal delivery): PLAN: Plan Discharge home
--- NOTE | 2024-02-17 09:45 | PCM.DC.SUM ---
Providers Date of Admission: 02/16/24 Date of Discharge: 02/17/24 Primary Care Physician: Sasha Primary Care Phys Reason For Visit: VAGINAL DELIVERY Diagnosis Discharge Diagnosis (1) (spontaneous vaginal delivery): Status: Acute Code(s): O80 - Encounter for full-term uncomplicated delivery Plan Discharge home Medications at Discharge Home Medications acetaminophen 500 mg tablet 1,000 mg (2 x 500 mg) PO Q6H PRN PRN Pain 1-10 Or Fever #0 tabs 09/11/21 naproxen 500 mg tablet 500 mg PO Q8H PRN PRN Pain Score 1-3 #0 tabs 09/11/21 ferrous sulfate 325 mg (65 mg iron) tablet (iron) 325 mg PO DAILY 02/15/24 vit no.95-ferrous fumarate 28 mg-folic acid 800 mcg tablet () 1 tab PO DAILY 02/15/24 Hospital Course Operations None Procedures None Summary of Care Provided Minutes Spent on Discharge: 20 Hospital Course: without complication. Breast feeding. Normal BPs Physical Exam Const alert and no apparent distress Narrative: Fundus firm, below umbilicus. Weight / BMI Weight Weight: 85.1 kg Body Mass Index (BMI) 32.2 ABG / Lab / Microbiology Data 02/16/24 01:25 02/16/24 01:25 D/C Instructions May resume sexual activity in: 6 weeks Please Follow Up With: Shari Hinton MD When: Follow up with our office in 1-2 and 6 weeks or as needed. [phone] Meaningful Use Info Meaningful Use Meaningful Use Diagnoses (Choose all that apply): None applicable Ischemic Stroke Statin Dosing Therapy Reference: STATIN DOSE THERAPY REFERENCE: * Patients > 75 years receive moderate or high dose statin therapy. * Patients 75 years or YOUNGER should receive HIGH intensity statin dose unless contraindicated. You will be required to document reason for non-treatment if statin daily dose does not meet guidelines. HIGH DOSE STATIN THERAPY DAILY Atorvastatin > than or = to 40 mg Rosuvastatin > than or = to 20 mg Amlodipine + Atorvastatin > than or = to 2.5/40 mg Ezetimibe + Simvastatin 10/80 mg Simvastatin 80mg Discharge Plan Admission Admit Date/Time: 02/16/24 02:33 Primary Reason for Your Visit: labor Attending Provider: Shari Hinton Primary Care Provider: Care Physician,No Primary Discharge Orders/Prescriptions Prescriptions: Continued acetaminophen 500 mg Tablet 1,000 mg PO Q6H PRN PRN (Reason: Pain 1-10 Or Fever) Qty: 0 0RF naproxen 500 mg Tablet 500 mg PO Q8H PRN PRN (Reason: Pain Score 1-3) Qty: 0 0RF PNV cmb#95-ferrous fumarate-FA [] 28 mg iron- 800 mcg tablet 1 tab PO DAILY ferrous sulfate [iron] 325 mg (65 mg iron) tablet 325 mg PO DAILY Discontinued aspirin [Adult Low Dose Aspirin] 81 mg tablet,delayed release (DR/EC) 81 mg PO DAILY acyclovir 400 mg tablet Patient Comments: TAKE 1 TABLET BY MOUTH TWICE A DAY Referrals / Follow Up: Care Physician,No Primary [Primary Care Provider] - Disposition Disposition (needs filled in before D/C Order can be placed): Home, Self Care
--- NOTE | 2024-02-18 15:43 | CASEMGMT ---
Social Work Assessment Labor and Delivery Unit Patient Address: [address] [place] [address] Phone number: [phone] Date of Referral: 02/16/24 Time of Referral:? 1903 Referred By: Dr. Hinton Date of Intervention: ?02/17/24? Time of Intervention:? 1230 Reason for Referral:?anxiety Sw completed chart review and acknowledges social work consult due to maternal mental health history of anxiety. Sw presented to bedside and introduced self to mother of baby (PAUL- Lizzy). Sw explained sw involvement and completed psychosocial assessment. Towards end of conversation father of baby (FOB- Abdirashid) presented to bedside with older son, Peter, and he participated in completion of assessment. History obtained from: medical records and mother of baby (PAUL)??and FOB. ? Household composition: Currently residing in the family home is JERAD MILLER, their two older sons: Celestino (4) and Peter (2). [place] baby to be added to residence when ready for discharge. PAUL denies any issues or concerns with housing reporting it to be safe and secure. Patient's parent/guardian status:?PAUL states that she and JERAD met through working on the [employer], they have been together for 8 years. PAUL denies any domestic violence or intimate partner violence. ? Medical History: ?PAUL is 33 year old female who is 3, para 2- now 3 following labor and delivery. PAUL received routine care during with [facility]. PAUL presented to hospital on 02/16/24 and delivered baby at 40 weeks gestation via vaginal delivery. baby was surprise gender, PAUL stated that she was hoping for a girl, but is happy to add another boy to their family. Baby Slim Bell, was born weighing 7lb 4oz with apgars of 9 and 9 at one and five minutes of life, respectfully. PAUL is breast feeding and states that it is going well. Baby will be followed by Dr. Alicia for pediatrics. Educational Status: Both parents graduated from high school. PAUL obtained her Bachelor's degree. No concerns reported with reading, learning or comprehension. Financial Status: Both parents are gainfully employed outside of the home. FOB is a delivery truck driver and PAUL works for [employer]. PAUL is able to take 12 weeks off of work for maternity leave. Supplies: Parents have obtained all necessary baby supplies, including: car seat, safe sleep space, clothes, diapers and wipes. Childcare/Caregiver(s):? PAUL will be the primary caregiver along with JERAD when he is not working. MOB states that they have some days out of the week covered for childcare, but still need three days a week covered. MOB states that it has been difficult to try and find a day care provider. Transportation:?? Both parents have their drivers license and reliable means of transportation. No barriers. Programs/Agencies Involved: Parents are not connected to any community resources that assist them financially. MOB denies being connected to any mental health services or supports. ??? Children Services/Legal Issues:???No history of children services involvement. No issues or concerns warranting referral to be made at this time. Behavioral Health Issues: ??Mental Health History:?PAUL states that JERAD does not have any mental health diagnoses. PAUL states that she has been diagnosed with anxiety, but it was a long time ago and she does not believe that this is something that she still struggles with. PAUL denies experiencing any baby blues or symptoms after her other two children were born. ?? Substance Use History:?PAUL denies substance use prior to and during . ? Family History:?PAUL denies family history of substance use or significant mental health diagnoses. ? Drug Screens: No drug screens observed in chart review. Family/Social Stressors:? PAUL states that her biggest stressor at this time is navigating finding a day care/ child care cook provider for the baby and siblings for when she returns to work. Support Systems: PAUL states that JERAD and her mom are her biggest supports at this time. Depression/Shaken Baby/Safe Sleeping: Sw educated MOB on signs and symptoms of baby blues and mood and anxiety disorders to be mindful of during this period. Deondre explained that since PAUL is stating that this is her last baby, sometimes that finality brings with it some unexpected emotions during the period. PAUL recognized that and states that she has family and friends that she is able to talk to if she feels as though she is struggling. FOB states that he would do his best to recognize if MOB were struggling with her mental health, and would try to help her even if he was not sure what she needed. Sw educated parents on shaken baby prevention and ABCs of safe sleep. Parents express understanding. ASSESSMENT:? MOB and baby admitted following labor and delivery of . MOB talkative throughout completion of psychosocial assessment. MOB observed to hold baby lovingly and appropriately. MOB and FOB observed to have supportive relationship, even though FOB states he does not feel like he may always be able to recognize when MOB is struggling with something. Parents have obtained all necessary baby supplies and have natural supports in place. MOB expressed concern due to fact that she has not secured childcare for when she returns to work, but this is something that she will have time to work on and figure out before returning to work. MOB receptive to involvement and support. PLAN:?? No other services requested or indicated. MOB and baby to be discharged when medically ready. Parents were provided literature regarding: signs and symptoms of baby blues and mood and anxiety disorders, Help Me Grow, shaken baby prevention, ABCs of safe sleep and a list of [facility] resources that are available for them should any needs present themselves. Emperatriz Li, TREATING ENGINEER, LAND LEASING INFORMATION CLERK
== END 2024-02-17 13:30 | disposition home or self-care (01) | DRG 807 ==
LOC: WPOUT 02:36 → WP 02:36
PROVIDERS: Advanced Practice Midwife; Admitting Provider Obstetrics & Gynecology; Visit Provider Obstetrics & Gynecology
DX: O80 Encounter for full-term uncomplicated delivery (principal); Z37.0 Single live birth; Z3A.40 40 weeks gestation of pregnancy; Z87.59 Personal history of other complications of pregnancy, childbirth and the puerperium
CPT/HCPCS: 59025; 59050; 82565; 82570; 84156; 84450; 84460; 84550; 85027; 86780; 86850; 86900; 86901; 99221; J7120; G0378; J2405